=== PATIENT | female | born 1940 | race African-American/Black ===

== ENCOUNTER 2016-10-23 23:06 | Emergency (ER) | payer MEDICARE, MEDICAID ==
[~2016-10-23] VITALS: Ht 172.7 cm; Wt 58.1 kg
[~2016-10-23 23:06] MED LIST: ALBU6.7H INH; AMLODIPINE PO; ASA PO; BRIM5DRO BOTHEYE; CARB1DRO6 BOTHEYE; CARB1TAB5 PO; CARB1TAB9 PO; CHOL100026 PO; CLON0.5T4 PO; DICY10CA88 PO; HCTZ PO; LOSA100T14 PO; MELA5TAB3 PO; NITR0.4T SL; POLY17PO3 PO; PRED5DRO7 RIGHTEYE; RASA1TAB PO; SIMVASTATIN PO; TRAV2.5D EACHEYE; ZOLP10TA2 PO
[2016-10-24] MEDS ORDERED: ACETAMINOPHEN 325MG TABLET PO ONE (00:15)
[2016-10-24 00:25] VITALS: BP 148/75
[2016-10-24] MEDS ORDERED: TETANUS AND DIPHTHERIA TOX/PF 0.5ML SYR (ADULT) IM ONE (02:00)
[2016-10-24] MEDS ORDERED: TETANUS, DIPHTHERIA, PERTUSSIS VAC/PF 0.5ML (>7YR OLD) IM ONE (02:15)
== END 2016-10-24 02:29 | disposition home or self-care (01) ==
LOC: ER 23:09
DX: L84 Corns and callosities (principal); M79.672 Pain in left foot; G20 Parkinson's disease; I10 Essential (primary) hypertension; Z88.8 Allergy status to other drugs, medicaments and biological substances; Z79.899 Other long term (current) drug therapy
CPT/HCPCS: 73630; 90471; 90714; 90715; 99284

== ENCOUNTER 2016-11-14 16:45 | Emergency (ER) | payer MEDICARE, MEDICAID ==
[~2016-11-14] VITALS: Ht 154.9 cm; Wt 69.0 kg
[2016-11-14] MEDS ORDERED: IPRATROPIUM BROMIDE (0.02%) 0.5MG/2.5ML NEB HHN STA (16:59)
[2016-11-14] MEDS ORDERED: ALBUTEROL (0.083%) 2.5MG/3ML NEB HHN STA (16:59)
[2016-11-14] MEDS ORDERED: METHYLPREDNISOLONE SOD SUCC 125 MG/2 ML VIAL IV STA (16:59)
[2016-11-14 17:36] LABS: BG BASE EXCESS 0.3 mmol/L (-2.0-2.0); BG CARBOXYHEMOGLOBIN 0.4 % (0.5-1.5); BG DEOXYHEMOGLOBIN 1.3 % (0.0-5.0); BG FRACTION INSPIRED OXYGEN 28; BG HCO3 ACT 25.3 mmol/L (22.0-26.0); BG METHEMOGLOBIN 0.4 % (0.0-1.5); BG OXYGEN SATURATION 98.7 % (92.0-98.5); BG OXYHEMOGLOBIN 97.9 % (94.0-97.0); BG PCO2 41.9 mmHg (35.0-45.0); BG PH 7.398 (7.350-7.450); BG PO2 126.5 mmHg (75.0-100.0); BG SAMPLE SITE RIGHT BRACHIAL; BG TOTAL HEMOGLOBIN 12.1 g/dL (12.0-18.0); BG VENT MODE NASAL CANNULA
[2016-11-14 17:38] LABS: BASOPHILS % 0.5 % (0.0-2.0); DIFFERENTIAL COMMENT 0; EOSINOPHILS % 1.3 % (0.0-5.0); HEMATOCRIT. 36.1 % (36.0-48.0); HEMOGLOBIN. 11.8 g/dL (12.0-16.0); LYMPHOCYTES % 23.6 % (20.0-50.0); MEAN CORPUSCULAR HEMOGLOBIN 23.7 pg (28.0-32.0); MEAN CORPUSCULAR HGB CONC 32.6 g/dL (31.0-37.0); MEAN CORPUSCULAR VOLUME 72.7 fL (81.0-99.0); MEAN PLATELET VOLUME 8.4 fl (7.4-10.4); MONOCYTES % 10.1 % (2.0-8.0); NEUTROPHILS % 64.5 % (40.0-76.0); PLATELET 135 x1000/uL (130-400); RED BLOOD CELL COUNT 4.96 mill/uL (4.2-5.4); RED CELL DISTRIBUTION WIDTH 14.5 % (11.6-14.6); WHITE BLOOD COUNT 7.3 x1000/uL (4.5-11.0)
[2016-11-14 17:45] LABS: PROTHROMBIN TIME 10.4 sec
[2016-11-14 17:50] LABS: ALANINE AMINOTRANSFERASE 9 IU/L (13-61); ALBUMIN 3.5 g/dL (3.4-5.0); ANION GAP 15; CALCIUM 8.6 mg/dL (8.5-10.1); CARBON DIOXIDE 25 mEq/L (21-32); CHLORIDE 101 mEq/L (98-107); INDEX HEMOLYSI 1 (1-3); INDEX ICTERIC 1 (1-4); INDEX LIPEMIC 1 (1-3); UREA NITROGEN BLOOD 20 mg/dL (7-21); eGFR > 60 mL/min (>60)
[2016-11-14 17:53] LABS: NT PRO B-TYPE NATRIURETIC PEP 143 pg/mL (5-125); TROPONIN I < 0.02 ng/mL (0.00-0.04)
[2016-11-14] MEDS ORDERED: POTASSIUM CHLORIDE 20MEQ TABLET SR PO ONE (18:45)
[2016-11-14 20:20] LABS: CLARITY URINE CLEAR (CLEAR); COLOR URINE YELLOW (YELLOW); GLUCOSE URINE NEGATIVE (NEGATIVE); KETONES URINE NEGATIVE (NEGATIVE); LEUKOCYTE ESTERASE URINE NEGATIVE (NEGATIVE); NITRITE URINE NEGATIVE (NEGATIVE); OCCULT BLOOD URINE NEGATIVE (NEGATIVE); PH URINE 6.5 (4.5-8.0); PROTEIN URINE NEGATIVE (NEGATIVE); SPECIFIC GRAVITY URINE 1.005 (1.005-1.030); UROBILINOGEN URINE 0.2 E.U./dL (0.2-1.0)
[2016-11-14] MEDS ORDERED: PREDNISONE 20MG TABLET PO ONE (21:15)
[2016-11-14 23:15] VITALS: BP 141/69
== END 2016-11-14 23:18 | disposition home or self-care (01) ==
LOC: ER 16:46
DX: J45.901 Unspecified asthma with (acute) exacerbation (principal); I10 Essential (primary) hypertension; R10.13 Epigastric pain; Z88.8 Allergy status to other drugs, medicaments and biological substances; Z79.899 Other long term (current) drug therapy
CPT/HCPCS: 36415; 36600; 71010; 74176; 80053; 81003; 82375; 82805; 83605; 83690; 83880; 84484; 85025; 85610; 85730; 87040; 93005; 94640; 96374; 99285; J2930; J7611

== ENCOUNTER 2017-02-10 22:23 | Emergency (ER) | payer MEDICARE, MEDICAID ==
[~2017-02-10] VITALS: Ht 157.5 cm; Wt 71.0 kg
[2017-02-11] MEDS ORDERED: KETOROLAC 30MG/ML VIAL IV ONE
[2017-02-11 02:46] LABS: BASOPHILS % 0.6 % (0.0-2.0); EOSINOPHILS % 1.1 % (0.0-5.0); HEMATOCRIT. 35.5 % (36.0-48.0); LYMPHOCYTES % 26.8 % (20.0-50.0); MEAN CORPUSCULAR HEMOGLOBIN 24.7 pg (28.0-32.0); MEAN CORPUSCULAR VOLUME 73.2 fL (81.0-99.0); MEAN PLATELET VOLUME 8.4 fl (7.4-10.4); MONOCYTES % 9.6 % (2.0-8.0); NEUTROPHILS % 61.9 % (40.0-76.0); PLATELET 132 x1000/uL (130-400); RED BLOOD CELL COUNT 4.85 mill/uL (4.2-5.4); RED CELL DISTRIBUTION WIDTH 14.9 % (11.6-14.6)
[2017-02-11 02:54] LABS: PARTIAL THROMBOPLASTIN TIME 26.1 sec (24.0-34.0); PROTHROMBIN TIME 10.5 sec
[2017-02-11 02:59] LABS: CARBON DIOXIDE 30 mEq/L (21-32); CHLORIDE 103 mEq/L (98-107)
[2017-02-11] MEDS ORDERED: LORAZEPAM 2MG/ML CPJ IV ONE ×2 (05:45)
[2017-02-11] MEDS ORDERED: MORPHINE SULFATE 4 MG/ML CPJ (NOT FOR IM USE) IV ONE (05:45)
[2017-02-11 09:16] VITALS: BP 125/82
[2017-02-11] MEDS ORDERED: SODIUM CHLORIDE 0.9% 10ML VIAL ONE (14:48)
[2017-02-11] MEDS ORDERED: IOHEXOL-300 100 ML BOTTLE ONE (14:48)
== END 2017-02-11 09:17 | disposition home or self-care (01) ==
LOC: ER 22:58
DX: K43.6 Other and unspecified ventral hernia with obstruction, without gangrene (principal); I10 Essential (primary) hypertension; J45.909 Unspecified asthma, uncomplicated; Z88.8 Allergy status to other drugs, medicaments and biological substances; E78.00 Pure hypercholesterolemia, unspecified
CPT/HCPCS: 36415; 74177; 80048; 83605; 85025; 85610; 85730; 86850; 86900; 86901; 96374; 96375; 96376; 99285; A4216; J1885; J2060; J2270; Q9967

== ENCOUNTER 2017-06-20 20:32 | Inpatient (IN) | payer MEDICARE, MEDICAID ==
[~2017-06-20] VITALS: Ht 154.9 cm; Wt 53.1 kg
[~2017-06-20 20:32] MED LIST changes: -CHOL100026 PO; +CHOL100044 PO
[2017-06-20] MEDS ORDERED: IPRATROPIUM BROMIDE (0.02%) 0.5MG/2.5ML NEB HHN STA (20:40)
[2017-06-20] MEDS ORDERED: METHYLPREDNISOLONE SOD SUCC 125 MG/2 ML VIAL IV STA (20:40)
[2017-06-20] MEDS ORDERED: MAGNESIUM 2 G PREMIX 50 ML IV ONE (20:45)
[2017-06-20] MEDS: ALBUTEROL (0.083%) 2.5MG/3ML NEB HHN SCH ×3 (20:45→21:45)
[2017-06-20 21:53] LABS: BASOPHILS % 0.3 % (0.0-2.0); EOSINOPHILS % 1.5 % (0.0-5.0); LYMPHOCYTES % 45.6 % (20.0-50.0); MEAN CORPUSCULAR HEMOGLOBIN 24.3 pg (28.0-32.0); MEAN CORPUSCULAR VOLUME 75.1 fL (81.0-99.0); MEAN PLATELET VOLUME 8.7 fl (7.4-10.4); MONOCYTES % 12.5 % (2.0-8.0); NEUTROPHILS % 40.1 % (40.0-76.0); PLATELET 167 x1000/uL (130-400); RED BLOOD CELL COUNT 4.92 mill/uL (4.2-5.4); RED CELL DISTRIBUTION WIDTH 15.1 % (11.6-14.6)
[2017-06-20 22:02] LABS: PROTHROMBIN TIME 10.7 sec (9.4-11.6)
[2017-06-20 22:08] LABS: CARBON DIOXIDE 24 mEq/L (21-32); CHLORIDE 104 mEq/L (98-107)
[2017-06-20 22:10] LABS: TROPONIN I < 0.02 ng/mL (0.00-0.04)
[2017-06-21] VITALS (12 sets, daily range): BP systolic 142–183; BP diastolic 70–98
[2017-06-21] MEDS ORDERED: CEFTRIAXONE 1 G PREMIX 50 ML IV ONE (00:45)
[2017-06-21] MEDS ORDERED: AZITHROMYCIN 500 MG in DEXT 5% WATER 250 ML IV ONE (00:45)
[2017-06-21] MEDS ORDERED: SODIUM CHLORIDE 0.9% 1000ML BAG (SEPSIS BOLUS) IV ONE (00:45)
[2017-06-21 01:12] LABS: BG BASE EXCESS -2.1 mmol/L (-2.0-2.0); BG BILEVEL POS AIRWAY PRESSURE 18/5; BG CARBOXYHEMOGLOBIN 0.3 % (0.5-1.5); BG DEOXYHEMOGLOBIN 0.2 % (0.0-5.0); BG FRACTION INSPIRED OXYGEN 100; BG HCO3 ACT 23.5 mmol/L (22.0-26.0); BG METHEMOGLOBIN 0.6 % (0.0-1.5); BG OXYGEN SATURATION 99.8 % (92.0-98.5); BG OXYHEMOGLOBIN 98.9 % (94.0-97.0); BG PCO2 43.5 mmHg (35.0-45.0); BG PO2 482.4 mmHg (75.0-100.0); BG SAMPLE SITE RIGHT RADIAL; BG TOTAL HEMOGLOBIN 12.5 g/dL (12.0-18.0); BG VENT MODE MASK - BIPAP; BG VENT RATE 16 set
[2017-06-21] MEDS ORDERED: IPRATROPIUM/ALBUTEROL 0.5-3(2.5)MG/3ML NEB HHN PRN (04:30)
[2017-06-21] MEDS: LEVOFLOXACIN 500MG PREMIX 100 ML IV SCH (05:53)
[2017-06-21] MEDS: METHYLPREDNISOLONE SOD SUCC 125 MG/2 ML VIAL IV SCH ×2 (06:02→12:53)
[2017-06-21] MEDS ORDERED: DORZ10DR7 BOTHEYE (07:56)
[2017-06-21] MEDS ORDERED: BRIM.2 BOTHEYE (07:56)
[2017-06-21] MEDS ORDERED: CYCL30DR BOTHEYE (07:56)
[2017-06-21] MEDS ORDERED: SOLI10TA PO (07:56)
[2017-06-21] MEDS ORDERED: MIRA25TA PO (07:56)
[2017-06-21] MEDS ORDERED: FLUT1DIS3 INH (07:56)
[2017-06-21] MEDS ORDERED: TIOT4MIS5 INH (07:56)
[2017-06-21] MEDS ORDERED: LEFL20TA17 PO (07:56)
[2017-06-21] MEDS ORDERED: RIVA1PAT12 TOP (07:56)
[2017-06-21] MEDS ORDERED: RYTARY (08:13)
[2017-06-21] MEDS: ENOXAPARIN 40MG/0.4ML SYR SUBCUT SCH ×2 (08:41→08:52)
[2017-06-21] MEDS: CARBIDOPA/LEVODOPA 25/100MG TABLET PO SCH ×2 (11:13→21:38)
[2017-06-21] MEDS: LOSARTAN POTASSIUM 50 MG TABLET PO SCH (11:14)
[2017-06-21 12:33] LABS: T4 FREE 1.23 ng/dL (0.76-1.46)
[2017-06-21] MEDS ORDERED: LACTULOSE 20G/30ML UDC PO PRN (14:30)
[2017-06-21] MEDS ORDERED: BISACODYL 10MG SUPP PR PRN (14:30)
[2017-06-21] MEDS: CLONIDINE 0.2MG TABLET PO PRN ×2 (14:35→21:43)
[2017-06-21] MEDS ORDERED: METHYLPREDNISOLONE SOD SUCC 40 MG/ML VIAL IV SCH (15:30)
[2017-06-21] MEDS: IPRATROPIUM/ALBUTEROL 0.5-3(2.5)MG/3ML NEB HHN SCH ×2 (16:13→20:38)
[2017-06-21] MEDS: BUDESONIDE 0.5MG/2ML NEB HHN SCH ×2 (16:13→20:38)
[2017-06-21 16:43] LABS: CREATINE KINASE MB FRACTION 6.1 ng/mL (0.5-3.6); TROPONIN I 0.04 ng/mL (0.00-0.04)
[2017-06-21] MEDS: GUAIFENESIN 600MG ER TABLET PO SCH (21:39)
[2017-06-21] MEDS: METHYLPREDNISOLONE SOD SUCC 40 MG/ML VIAL IV SCH (21:39)
[2017-06-22] VITALS (12 sets, daily range): BP systolic 143–182; BP diastolic 79–95
[2017-06-22 00:12] LABS: CREATINE KINASE MB FRACTION 6.4 ng/mL (0.5-3.6)
[2017-06-22] MEDS: IPRATROPIUM/ALBUTEROL 0.5-3(2.5)MG/3ML NEB HHN SCH ×6 (00:47→20:21)
[2017-06-22] MEDS: LEVOFLOXACIN 500MG PREMIX 100 ML IV SCH (06:30)
[2017-06-22] MEDS: METHYLPREDNISOLONE SOD SUCC 40 MG/ML VIAL IV SCH ×2 (06:55→16:24)
[2017-06-22] MEDS: CLONIDINE 0.2MG TABLET PO PRN ×2 (06:56→18:14)
[2017-06-22 07:56] LABS: CREATINE KINASE MB FRACTION 4.6 ng/mL (0.5-3.6)
[2017-06-22] MEDS: GUAIFENESIN 600MG ER TABLET PO SCH ×2 (08:12→21:04)
[2017-06-22] MEDS: CARBIDOPA/LEVODOPA 25/100MG TABLET PO SCH ×2 (08:12→21:03)
[2017-06-22] MEDS: LOSARTAN POTASSIUM 50 MG TABLET PO SCH (08:12)
[2017-06-22] MEDS: ENOXAPARIN 40MG/0.4ML SYR SUBCUT SCH (08:15)
[2017-06-22] MEDS: BUDESONIDE 0.5MG/2ML NEB HHN SCH ×2 (09:08→20:21)
[2017-06-22] MEDS ORDERED: MIDAZOLAM HCL 2 MG/2 ML VIAL IV PRN (12:45)
[2017-06-23] VITALS (12 sets, daily range): BP systolic 152–185; BP diastolic 86–106
[2017-06-23] MEDS: IPRATROPIUM/ALBUTEROL 0.5-3(2.5)MG/3ML NEB HHN SCH ×6 (00:19→20:02)
[2017-06-23] MEDS: CLONIDINE 0.2MG TABLET PO PRN ×2 (03:22→17:46)
[2017-06-23] MEDS: LEVOFLOXACIN 500MG PREMIX 100 ML IV SCH (05:13)
[2017-06-23 06:36] LABS: HEMATOCRIT. 37.6 % (36.0-48.0); LYMPHOCYTES % 8.5 % (20.0-50.0); MEAN CORPUSCULAR HEMOGLOBIN 23.7 pg (28.0-32.0); MEAN CORPUSCULAR VOLUME 74.3 fL (81.0-99.0); MEAN PLATELET VOLUME 8.8 fl (7.4-10.4); MONOCYTES % 6.4 % (2.0-8.0); NEUTROPHILS % 85.1 % (40.0-76.0); PLATELET 151 x1000/uL (130-400); RED BLOOD CELL COUNT 5.07 mill/uL (4.2-5.4); RED CELL DISTRIBUTION WIDTH 15.4 % (11.6-14.6)
[2017-06-23 07:02] LABS: CARBON DIOXIDE 25 mEq/L (21-32); CHLORIDE 109 mEq/L (98-107)
[2017-06-23] MEDS: BUDESONIDE 0.5MG/2ML NEB HHN SCH ×2 (07:22→20:04)
[2017-06-23] MEDS: CARBIDOPA/LEVODOPA 25/100MG TABLET PO SCH ×2 (08:34→21:24)
[2017-06-23] MEDS: LOSARTAN POTASSIUM 50 MG TABLET PO SCH (08:34)
[2017-06-23] MEDS: METHYLPREDNISOLONE SOD SUCC 40 MG/ML VIAL IV SCH (08:34)
[2017-06-23] MEDS: GUAIFENESIN 600MG ER TABLET PO SCH ×2 (08:34→21:24)
[2017-06-23] MEDS: ENOXAPARIN 40MG/0.4ML SYR SUBCUT SCH (08:34)
[2017-06-23] MEDS ORDERED: AMLODIPINE 10MG TABLET PO NR (21:19)
[2017-06-23] MEDS ORDERED: CLONIDINE 0.3MG TABLET PO PRN (21:20)
[2017-06-24] VITALS (12 sets, daily range): BP systolic 102–179; BP diastolic 61–96
[2017-06-24] MEDS: IPRATROPIUM/ALBUTEROL 0.5-3(2.5)MG/3ML NEB HHN SCH ×6 (00:21→21:38)
[2017-06-24] MEDS: LEVOFLOXACIN 500MG PREMIX 100 ML IV SCH (05:50)
[2017-06-24 07:01] LABS: BASOPHILS % 0.1 % (0.0-2.0); EOSINOPHILS % 0.2 % (0.0-5.0); HEMOGLOBIN. 12.9 g/dL (12.0-16.0); LYMPHOCYTES % 17.1 % (20.0-50.0); MEAN CORPUSCULAR VOLUME 74.3 fL (81.0-99.0); MEAN PLATELET VOLUME 8.6 fl (7.4-10.4); MONOCYTES % 9.4 % (2.0-8.0); NEUTROPHILS % 73.2 % (40.0-76.0); PLATELET 137 x1000/uL (130-400); RED BLOOD CELL COUNT 5.38 mill/uL (4.2-5.4); RED CELL DISTRIBUTION WIDTH 15.4 % (11.6-14.6)
[2017-06-24 07:12] LABS: CARBON DIOXIDE 27 mEq/L (21-32); CHLORIDE 110 mEq/L (98-107)
[2017-06-24] MEDS: LOSARTAN POTASSIUM 50 MG TABLET PO SCH (08:06)
[2017-06-24] MEDS: PREDNISONE 20MG TABLET PO SCH (08:07)
[2017-06-24] MEDS: AMLODIPINE 10MG TABLET PO SCH (08:07)
[2017-06-24] MEDS: GUAIFENESIN 600MG ER TABLET PO SCH ×2 (08:07→20:50)
[2017-06-24] MEDS: CARBIDOPA/LEVODOPA 25/100MG TABLET PO SCH ×2 (08:08→20:50)
[2017-06-24] MEDS: BUDESONIDE 0.5MG/2ML NEB HHN SCH (08:46)
[2017-06-24] MEDS: ENOXAPARIN 40MG/0.4ML SYR SUBCUT SCH (09:30)
[2017-06-25] VITALS (9 sets, daily range): BP systolic 102–165; BP diastolic 59–91
[2017-06-25] MEDS: IPRATROPIUM/ALBUTEROL 0.5-3(2.5)MG/3ML NEB HHN SCH ×3 (02:19→09:02)
[2017-06-25 05:44] LABS: CARBON DIOXIDE 26 mEq/L (21-32); CHLORIDE 110 mEq/L (98-107)
[2017-06-25 06:32] LABS: BASOPHILS % 0.1 % (0.0-2.0); EOSINOPHILS % 0.2 % (0.0-5.0); HEMOGLOBIN. 13.1 g/dL (12.0-16.0); LYMPHOCYTES % 18.7 % (20.0-50.0); MEAN CORPUSCULAR HEMOGLOBIN 24.4 pg (28.0-32.0); MEAN CORPUSCULAR VOLUME 74.4 fL (81.0-99.0); MEAN PLATELET VOLUME 8.4 fl (7.4-10.4); MONOCYTES % 9.4 % (2.0-8.0); NEUTROPHILS % 71.6 % (40.0-76.0); PLATELET 126 x1000/uL (130-400); RED BLOOD CELL COUNT 5.37 mill/uL (4.2-5.4); RED CELL DISTRIBUTION WIDTH 15.1 % (11.6-14.6)
[2017-06-25] MEDS: LOSARTAN POTASSIUM 50 MG TABLET PO SCH (08:03)
[2017-06-25] MEDS: AMLODIPINE 10MG TABLET PO SCH (08:03)
[2017-06-25] MEDS: CARBIDOPA/LEVODOPA 25/100MG TABLET PO SCH (08:04)
[2017-06-25] MEDS: ENOXAPARIN 40MG/0.4ML SYR SUBCUT SCH (08:05)
[2017-06-25] MEDS: PREDNISONE 20MG TABLET PO SCH (08:05)
[2017-06-25] MEDS: GUAIFENESIN 600MG ER TABLET PO SCH (08:05)
[2017-06-25] MEDS ORDERED: LEVOFLOXACIN 500MG TABLET PO SCH (09:00)
== END 2017-06-25 13:30 | disposition home or self-care (01) | DRG 177 ==
LOC: ER 20:51 → 3WST 06-21 00:44 → EDBEDREQTM 06-21 00:48 → EDBEDREQSVC 06-21 00:48 → EDBEDREQ 06-21 00:48 → ENRESERV 06-21 01:17
PROVIDERS: ADMIT Internal Medicine; ATTEND Internal Medicine
PROC: 5A09357 Assistance with Respiratory Ventilation, Less than 24 Consecutive Hours, Continuous Positive Airway Pressure (ICD-10-PCS; 2017-06-20)
PROC: 5A09357 Assistance with Respiratory Ventilation, Less than 24 Consecutive Hours, Continuous Positive Airway Pressure (ICD-10-PCS; principal; 2017-06-21)
PROC: 5A09357 Assistance with Respiratory Ventilation, Less than 24 Consecutive Hours, Continuous Positive Airway Pressure (ICD-10-PCS; 2017-06-24)
DX: J69.0 Pneumonitis due to inhalation of food and vomit (principal); J96.00 Acute respiratory failure, unspecified whether with hypoxia or hypercapnia; E87.2 Acidosis; E46 Unspecified protein-calorie malnutrition; G20 Parkinson's disease; J45.901 Unspecified asthma with (acute) exacerbation; J44.0 Chronic obstructive pulmonary disease with (acute) lower respiratory infection; I50.30 Unspecified diastolic (congestive) heart failure; J44.1 Chronic obstructive pulmonary disease with (acute) exacerbation; I11.0 Hypertensive heart disease with heart failure; I11.9 Hypertensive heart disease without heart failure; I25.10 Atherosclerotic heart disease of native coronary artery without angina pectoris; J20.9 Acute bronchitis, unspecified; E11.9 Type 2 diabetes mellitus without complications; M19.90 Unspecified osteoarthritis, unspecified site; F32.9 Major depressive disorder, single episode, unspecified; E78.00 Pure hypercholesterolemia, unspecified; Z68.22 Body mass index [BMI] 22.0-22.9, adult; Z79.899 Other long term (current) drug therapy
CPT/HCPCS: 36415; 36600; 71010; 80048; 80053; 80061; 82375; 82550; 82553; 82805; 82962; 83036; 83605; 83880; 84439; 84443; 84484; 85025; 85379; 85610; 87040; 87804; 93005; 93306; 93970; 94640; 94660; 94664; 96365; 96366; 96367; 96368; 96375; 97162; 97166; 97530; 99285; J0456; J0696; J1650; J1956; J2920; J2930; J3475; J7030; J7050; J7060; J7512; J7611; J7620; J7626

== ENCOUNTER 2017-07-05 13:56 | Emergency (ER) | payer MEDICARE, MEDICAID ==
[~2017-07-05] VITALS: Ht 160 cm; Wt 66.0 kg
[~2017-07-05 13:56] MED LIST changes: +BRIM.2 BOTHEYE; +CYCL30DR BOTHEYE; +DORZ10DR7 BOTHEYE; +FLUT1DIS3 INH; +LEFL20TA17 PO; +MIRA25TA PO; +RIVA1PAT12 TOP; +RYTARY; +SOLI10TA PO; +TIOT4MIS5 INH
[2017-07-05 16:35] VITALS: BP 121/74
== END 2017-07-05 17:02 | disposition home or self-care (01) ==
LOC: ER 14:09
DX: K59.00 Constipation, unspecified (principal); F03.90 Unspecified dementia, unspecified severity, without behavioral disturbance, psychotic disturbance, mood disturbance, and anxiety; I10 Essential (primary) hypertension; Z88.8 Allergy status to other drugs, medicaments and biological substances
CPT/HCPCS: 74000; 99283

== ENCOUNTER 2018-04-21 11:44 | Emergency (ER) | payer MEDICARE, MEDICAID ==
[~2018-04-21] VITALS: Ht 154.9 cm; Wt 51.0 kg
[~2018-04-21 11:44] MED LIST changes: +CLON0.5T12 PO; -CLON0.5T4 PO; -DORZ10DR7 BOTHEYE; +DORZ10DR8 BOTHEYE
[2018-04-21 14:12] VITALS: BP 164/80
== END 2018-04-21 14:31 | disposition home or self-care (01) ==
LOC: ER 14:16
DX: S00.03XA Contusion of scalp, initial encounter (principal); G31.83 Neurocognitive disorder with Lewy bodies; F02.80 Dementia in other diseases classified elsewhere, unspecified severity, without behavioral disturbance, psychotic disturbance, mood disturbance, and anxiety; M24.542 Contracture, left hand; M24.541 Contracture, right hand; E78.00 Pure hypercholesterolemia, unspecified; I10 Essential (primary) hypertension; I51.9 Heart disease, unspecified; Z98.890 Other specified postprocedural states; Z87.821 Personal history of retained foreign body fully removed; Z88.9 Allergy status to unspecified drugs, medicaments and biological substances; Z79.899 Other long term (current) drug therapy; W18.39XA Other fall on same level, initial encounter; Y93.89 Activity, other specified; Y92.89 Other specified places as the place of occurrence of the external cause; Y99.8 Other external cause status
CPT/HCPCS: 70450; 99284